=== PATIENT | female | born 1935 | race Caucasian/White ===

== ENCOUNTER 2017-10-13 14:40 | Inpatient (IN) | payer OTHER, BC ==
[~2017-10-13] VITALS: Ht 167.6 cm; Wt 60.8 kg
--- NOTE | ~2017-10-13 | HC ---
[facility] [place] [address] CONSULTATION Name: CELAYABIBI Room #: 355-P [facility] IN .R.#: [id number] Admission: 10/14/17 Attend Phys: Macho Cobb MD Discharge: Date of : 37 Report #: [id number] THIS REPORT FOR: //name// CC: Macho Cobb DATE OF SERVICE: 10/20/2017 CONSULT/PREADMISSION SCREENING HISTORY OF PRESENT ILLNESS: The patient is an 82-year-old white female with history of HIV since 1995, has had problems with worsening bilateral lower extremity weakness. She has been noted to have seen 4 different neurologists and has a diagnosis of peripheral neuropathy with progressive sensory, motor axonal neuropathy. She also has had degenerative arthritis, right hip and has undergone recent injection. She has had worsening weakness, had a fall x 2, trying to get out of a chair. She was admitted to [facility]. She underwent evaluation with bone scan and Ortho involvement and was diagnosed with a left femoral neck stress fracture with left lesser trochanteric involvement. She has now undergone intramedullary nailing on 10/18/[address] Webb and is allowed weightbearing as tolerated. We are seeing her in rehabilitation medicine consultation. PAST MEDICAL HISTORY: Well delineated above. She also has a prior history of hypertension, osteoporosis, adult onset diabetes mellitus, episode of Brown's palsy, cystocele and rectocele repair with uterine prolapse, bladder suspension surgery, tubal ligation, herniorrhaphy, and HIV. PAST SURGICAL HISTORY: As noted above. FAMILY HISTORY: Noncontributory. ALLERGIES: PROCHLORPERAZINE. MEDICATIONS: Please see the full medication listing. SOCIAL HISTORY: House with ____. She had been utilizing a wheelchair, but was independent from the wheelchair level including being able to do her transfers. is there to do the IADLs. REVIEW OF SYSTEMS: Did not offer any current complaints of chest pain, shortness of breath or abdominal discomfort. She has some left hip discomfort as expected. She has the numbness of both of her distal lower extremities with weakness consistent with peripheral neuropathy. Did not offer any complaints of any headache or swallowing difficulties. PHYSICAL EXAMINATION: [facility] [address] [place] [address] CONSULTATION Name: BIBI CELAYA Tom Room #: 355-P [facility] IN [facility].#: [id number] Admission: 10/14/17 Attend Phys: Macho Cobb MD Discharge: Date of : 37 Report #: [id number] GENERAL: An 82-year-old white female in no obvious distress. VITAL SIGNS: Last recorded temperature is 98.3, pulse 97, respirations 16, blood pressure 95/43. NEUROLOGIC: She is alert and pleasant, follows basic commands without difficulty. HEENT: Facies appeared symmetric. EXTREMITIES: She has functional range of motion of both upper extremities with strength of grade 4-/5. DTRs are trace to 1. In her lower extremities, there is no focal calf swelling. Her left hip reveals the dressing over the lateral hip and distal femoral area. There is no focal calf swelling. She does have decreased distal sensation in a stocking distribution with some decreased proprioception in bilateral large toes. Strength distally is probably a grade 3+ to 4-/5. Proximal strength is probably 3+/5. She has some discomfort moving that left lower extremity as expected. She is now mod assist with supine to sit. Unable to stand at this point in time and is needing max assist. ASSESSMENT: An 82-year-old white female with the following problems. 1. Left femoral neck stress fracture with lesser trochanteric fracture status post intramedullary nail on 10/18/2017, allowed weightbearing as tolerated. 2. Progressive sensory, motor axonal neuropathy. 3. HIV since 1995. 4. History of degenerative arthritis with recent right hip injection. 5. Premorbid wheelchair bound. 6. Acute renal insufficiency secondary to acute tubular necrosis from dehydration. 7. Hypertension. 8. Osteoporosis. PLAN: The patient is an acute inpatient rehabilitation candidate. From a preadmission screening perspective: 1. Prior level of function is delineated above. 2. Expect level of improvement would be for the patient to become modified independent with basic transfers, mobility and ADLs at the wheelchair level, so that she can return back home. 3. Evaluation of the patient's risk for clinical complications. She does have multiple medical comorbidities as noted above and has potential complications with postoperative complications. She does have the renal insufficiency issues. Her HIV and electrolyte abnormalities, all of which will need to be monitored while she is on rehabilitation. 4. Condition that caused the need for rehabilitation would be the left femoral neck fracture. 5. Treatments need would include PT and OT 1-1/2 hours per day each, five days a week throughout the duration of the acute inpatient rehabilitation stay. 6. Anticipated discharge destination would be back to the home setting. 7. Would anticipate home healthcare therapies once the patient is ready for discharge back to the home setting. [facility] [address] [place] [address] CONSULTATION Name: BIBI CELAYA Room #: 355-P [facility] IN ..#: [id number] Admission: 10/14/17 Attend Phys: Macho Cobb MD Discharge: Date of : 37 Report #: [id number] 8. The patient meets diagnostic criteria for an acute in-hospital inpatient rehabilitation stay. She does meet medical necessity criteria with the above noted comorbidities. She appears to have the tolerance for an acute rehab stay and has appropriate discharge goals back to the home setting. By: 1316 [id number] Prasanth Mehta MD /
--- NOTE | ~2017-10-13 | O ---
[facility] [place] [address] OPERATIVE REPORT Name: BIBI CELAYA Room #: 355-P [facility] IN M.R.#: [id number] Admission: 10/14/17 Attend Phys: Macho Cobb MD Discharge: Date of : 37 Report #: [id number] THIS REPORT FOR: //name// CC: Macho Cobb DATE OF SERVICE: 10/18/2017 PREOPERATIVE DIAGNOSES: Left femoral neck stress fracture and left lesser trochanteric stress fracture. POSTOPERATIVE DIAGNOSES: Left femoral neck stress fracture and left lesser trochanteric stress fracture. PROCEDURE: Prophylactic treatment of left femoral neck fracture and lesser trochanteric stress fracture with a long IM nail. SURGEON: Sharan Webb MD. AUDIT SPEC: Maria Luisa Price PA-C. INDICATIONS FOR AUDIT SPEC: Throughout the case, retraction and manipulation of the leg was required. This was afforded to me by my community assistant. ANESTHESIA: General endotracheal. IMPLANTS: [employer] size 10 x 38 InterTan nail with a size 90/85 lag screw and compression screw as well as a size 32.5 and 35 distal locking screws. ESTIMATED BLOOD LOSS: 50 mL. COMPLICATIONS: None. SPECIMENS: None. CONDITION UPON LEAVING THE OPERATING ROOM: Stable. INDICATION OF PROCEDURE: The patient is an 82-year-old female who has had significant left hip pain and debility for the past several weeks. She has had several recent falls. She was admitted to the hospital secondary to intractable left hip and thigh pain. MRI scan was performed showing to have a stress fracture at her compression side of her femoral neck as well as a stress fracture along the lesser trochanteric region. Bone scan was performed of this area and it did light up. It was felt that these were active stress fractures and after discussion with she and her family in regard to treatment options and considering the amount of pain she was in, she elected for treatment with prophylactic nailing of her left femur. [facility] [address] [place] [address] OPERATIVE REPORT Name: BIBI CELAYA Room #: 355-P [facility] IN ..#: [id number] Admission: 10/14/17 Attend Phys: Macho Cobb MD Discharge: Date of : 37 Report #: [id number] DESCRIPTION OF PROCEDURE: Risks, benefits, alternatives, complications were discussed in detail with the patient including but not limited to risk of anesthesia, risk of damage to nerves, arteries, blood vessels, risk for infection, bleeding, risk for continued hip pain and need for reoperation. Informed consent was obtained from the patient. The left hip was appropriately marked in the preoperative holding area. She was brought to the operating room and general endotracheal anesthesia was induced without complication. She was transferred to the Stella table and the left lower extremity was placed in slight traction. Right lower extremity was scissored. IV Ancef was given for preoperative antibiotics. Fluoroscopic imaging was brought in to verify the adequate images could be obtained. Left hip and lower extremity were prepped and draped in normal sterile fashion. Timeout was performed properly identifying the patient and procedure as well as the instrumentation. All in the operating room were in agreement. An incision proximal to the tip of the greater trochanter in line with femur was made with 10 blade through the skin and the fascia. Threaded tip guidewire was placed on the tip of the greater trochanter and taken down to the level of the lesser trochanter under AP and lateral images to verify adequate starting portal position. An entry portal reamer was used to ream the entry portal and a long guidewire was placed down to the femur. Length of the nail was measured and found to be a size 38 length. The femoral canal was reamed with an 11.5 reamer and found to have a good chatter. A size 10 x 38 InterTan nail was then placed down the medullary canal of the femur and seated. The guide for the lag screw and compression screw was then placed and an incision was made in the skin and fascia and threaded tip guidewire was taken up into the femoral head under AP and lateral images to be deemed in good center-center position. The length of the lag screw was measured and found to be a size 90. The tract for the compression screw was then drilled and an 85 and the derotation bar was placed. The path for the compression screw was then drilled to a 90 and a size 90 lag screw was placed. The compression screw was then placed; however, no compression was placed across the fracture secondary to there being no displacement of the fracture. This was locked from above. The guide for the nail was then removed and final fluoroscopic images both AP and lateral of the hip were taken to verify adequate placement of the nail and screw. Two distal locking screws were then placed using the perfect cold springs technique. These were 32.5 and 35 mm in length. After placing distal locking screws, fluoroscopic images both AP and lateral, taken to verify adequate placement of screws in length. After this, all wounds were thoroughly irrigated with normal saline and closed with 2-0 Vicryl and skin derek. Soft dressing of Adaptic, 4 x 4, ABD and Medipore tape were applied. The patient tolerated this procedure well and went to the recovery room under the care of anesthesia postoperatively. By: 1858 26 Sharan Webb MD /nt
--- NOTE | ~2017-10-13 | H ---
[facility] [place] [address] HISTORY AND PHYSICAL Name: BIBI CELAYA Room #: 355-P [facility].Henri#: [id number] Admission: 10/13/17 Attend Phys: Macho Cobb MD Discharge: Date of : 37 Report #: [id number] THIS REPORT FOR: //name// CC: Macho Cobb DATE OF SERVICE: 10/13/2017 REASON FOR ADMISSION: Progressive weakness and fall. HISTORY OF PRESENT ILLNESS: The patient was an 82-year-old with underlying history of HIV since 1995 diagnosis, who has been under good control since that date with a combination antiretroviral program. Over the last year, she has developed progressive lower extremity weakness due to peripheral neuropathy. She has been evaluated by 4 neurologists over this time period with no other diagnosis established. In addition, she has degenerative arthritis both of her spine and of her joints including both hips. She was hospitalized in August at [facility] for failure to thrive. Again, evaluated by Neurology and orthopedic surgery. No new diagnosis was established. She did have a steroid injection to her right hip, which improved her symptoms on the right side significantly. She later went to retirement and rehabilitation over the last month. She made slight progress and did make at home. I saw her last week in the office where she was very weak, difficult to get out of a chair but could stand with some discomfort. Laboratory studies were unremarkable. Her HIV control was good and CD4 count was normal. Today, she fell twice at home. was unable to get her out of the floor, brought in to the Emergency Room via 911. No fever, chills or sweats. No injury to her upper extremities, back or head. She did have a fall down to her knees basically. Most of her complaints now reside in pain in her left side hip and thigh. I had referred her to Orthopedic Surgery for steroid injection earlier this week, but they were unable to do it because the patient could not get out of her wheelchair. No other new issues. Appetite has been fair. Weight has been stable. No cardiopulmonary, GI or complaints. Previous workup of her cervical spine, thoracic spine and lumbosacral did note some moderate stenosis at C5 through C7 and predominant L4-L5 disk disease with [id number] foraminal narrowing. ALLERGIES: PROCHLORPERAZINE with convulsions and CODEINE, nausea. MEDICATIONS: Included Atripla, Brii, metformin, losartan, hydrochlorothiazide, amlodipine, potassium and Sinemet has been discontinued as well as B12 shots. PAST MEDICAL HISTORY: Hypertension, osteoporosis, adult-onset diabetes, episode of Brown's palsy, cystocele and rectocele repair with uterine prolapse, bladder suspension surgery, tubal ligation, herniorrhaphy and HIV. [facility] [address] [place] [address] HISTORY AND PHYSICAL Name: BIBI CELAYA Room #: 355-P [facility] Sasha Driver#: [id number] Admission: 10/13/17 Attend Phys: Macho Cobb MD Discharge: Date of : 37 Report #: [id number] FAMILY HISTORY: Noncontributory. SOCIAL HISTORY: Nonsmoker. No significant alcohol intake. Lives with her at home, has a very attentive family. REVIEW OF SYSTEMS: Noted above. PHYSICAL EXAMINATION: VITAL SIGNS: Afebrile and hemodynamically stable. GENERAL: She is alert, cooperative and pleasant. Has a hoarse voice, which is unchanged from before. SKIN: Unremarkable other than multiple actinic and seborrheic keratoses. HEENT: Otherwise, unremarkable. NECK: Supple. LUNGS: Clear. HEART: Regular, without murmur. ABDOMEN: Soft and nontender. No hepatosplenomegaly or mass. EXTREMITIES: Unremarkable. She has marked tenderness in the left hip region with much irritability. Was unable to flex her hip or rotate internal or external. Right side had some irritability but was much improved from before. Strength in her feet was unremarkable. LABORATORY STUDIES: Sodium 135, potassium 3.2, chloride 102, bicarbonate 25, BUN 30, creatinine 2.2, glucose 138 and creatinine is up from her baseline of 1.0. Hemoglobin 11.5; WBC 9.2 and platelet count 245,000. Differential unremarkable. IMPRESSION: 1. An 82-year-old with progressive sensory, motor axonal neuropathy along with advanced degenerative arthritis. Suspecting most of her symptoms now are related to her arthritis. She does have some weakness, but it seems like most of her issue is pain and muscle spasms. I suspect this may be related to irritability in the hip joint. She also has human immunodeficiency virus, which is controlled. 2. Hypokalemia. 3. Hypertension. 4. Diabetes. RECOMMENDATIONS: We will have orthopedic evaluation for steroid injection to her left hip. We will do x-rays of her hip and pelvis after her fall. Further imaging pending orthopedic recommendations. Continue with pain medicines as [facility] [address] [place] [address] HISTORY AND PHYSICAL Name: BIBI CELAYA Room #: 355-P [facility] Sasha AntoineHenriОльгаHenri#: [id number] Admission: 10/13/17 Attend Phys: Macho Cobb MD Discharge: Date of : 37 Report #: [id number] necessary. Continue HIV treatment. Replace potassium. Control blood glucose, hydrate for I suspect her acute renal failure is ATN from prerenal state. <ELECTRONICALLY SIGNED> By: Macho Cobb MD 10/14/17 1044 26 Macho Cobb MD /nt
[~2017-10-13 14:40] MED LIST: ADVIL100 M2 PO; AMLODIPINE BESY10 MG PO; ARTIFICIAL TEAR15 M1 OP; ATRIPLA TABLET1 EACH PO; COZAAR 50 MG TA50 M2 PO; DIOVAN40 MG PO; FOSAMAX 70 MG T70 MG PO; GLUCOPHAGE XR500 MG PO; HYDROCHLOROTH12.5 MG PO; HYDROCODONE-AP1 EAC6 PO; K-DUR10 ME1 PO; KLOR-CON 1010 MEQ PO; OMEGA 3-6-9 CO1 EACH PO; SINEMET 25-1001 EAC1 PO; TRIPLA PO
[2017-10-13 14:41] VITALS: BP 139/91
[2017-10-13] MEDS ORDERED: NEURONTIN 300300 M1 PO (15:00)
[2017-10-13] MEDS ORDERED: ATRIPLA TABLET1 EACH PO (15:08)
[2017-10-13] MEDS ORDERED: ALLEGRA ALLERG180 MG PO (15:09)
[2017-10-13] MEDS ORDERED: B-122500 MC1 PO (15:10)
[2017-10-13] MEDS ORDERED: PROTONIX40 M1 PO (15:11)
[2017-10-13] MEDS ORDERED: TIZANIDINE HCL4 M1 PO (15:12)
[2017-10-13] MEDS ORDERED: ZOFRAN ODT4 MG PO (15:12)
[2017-10-13] MEDS ORDERED: BUSPIRONE HCL10 MG PO (15:13)
[2017-10-13] MEDS ORDERED: TYLENOL325 MG PO (15:14)
[2017-10-13 16:45] LABS: URINE BILIRUBIN NEGATIVE (Negative); URINE BLOOD 2+ (Negative); URINE COLOR YELLOW; URINE GLUCOSE-RANDOM* NEGATIVE (Negative); URINE KETONES NEGATIVE (Negative); URINE LEUKOCYTES-REFLEX NEGATIVE (Negative); URINE PROTEIN (DIPSTICK) TRACE (Negative); URINE SPECIFIC GRAVITY <= 1.005 (1.005-1.035); URINE UROBILINOGEN 0.2 E.U./dl (0.2-1.0)
[2017-10-13 16:56] LABS: CASTS None Seen /LPF (None Seen); CRYSTALS None Seen /LPF (None Seen); SQUAMOUS 0-3 Few /LPF (0-3); URINE RBC 0-2 Rare /HPF (0-2); URINE WBC-REFLEX 0-5 Rare /HPF (0-5)
[2017-10-13 17:36] LABS: ABSOLUTE NEUTROPHILS 7.2 thou/uL (1.4-8.2); BASOPHILS 0.5 % (0.0-2.0); EOSINOPHILS 1.1 % (0.0-3.0); HEMATOCRIT 34.5 % (37.0-47.0); HEMOGLOBIN 11.5 gm/dL (12.0-15.0); LYMPHOCYTES 14.3 % (24.0-44.0); MCH 31.6 pg (26.0-34.0); MCHC 33.3 g/dL (28.0-37.0); MCV 94.8 fL (80.0-100.0); MONOCYTES 5.4 % (1.0-8.0); PLATELET COUNT 245 thou/uL (150-400); POLYS 78.7 % (36.0-66.0); RBC 3.64 mil/uL (4.20-5.00); RDW 15.8 % (10.5-14.5); WBC 9.2 thou/uL (4.0-11.0)
[2017-10-13 17:37] LABS: MANUAL DIFF NO
[2017-10-13 17:50] LABS: CALCIUM 8.7 mg/dL (8.5-10.1); CREATININE 2.2 mg/dL (0.6-1.0); POTASSIUM 3.2 mmol/L (3.5-5.1)
[2017-10-13 17:58] VITALS: BP 134/62
[2017-10-13 18:24] VITALS: BP 149/65
[2017-10-13 20:00] VITALS: BP 127/56
[2017-10-14 04:00] VITALS: BP 106/60
[2017-10-14 04:28] LABS: CALCIUM 7.9 mg/dL (8.5-10.1); CREATININE 2.1 mg/dL (0.6-1.0); POTASSIUM 3.3 mmol/L (3.5-5.1)
[2017-10-14 07:10] VITALS: BP 102/44
[2017-10-14 12:17] VITALS: BP 135/66
[2017-10-14 15:21] VITALS: BP 152/49
[2017-10-14 20:00] VITALS: BP 129/75
[2017-10-15 04:00] VITALS: BP 147/72
[2017-10-15 06:35] LABS: CALCIUM 8.8 mg/dL (8.5-10.1); CREATININE 1.7 mg/dL (0.6-1.0); POTASSIUM 3.4 mmol/L (3.5-5.1)
[2017-10-15 07:29] VITALS: BP 161/71
[2017-10-15 17:06] VITALS: BP 146/77
[2017-10-15 20:20] VITALS: BP 143/69
[2017-10-16 05:00] VITALS: BP 167/86
[2017-10-16 07:30] VITALS: BP 149/82
[2017-10-16 15:33] VITALS: BP 137/66
[2017-10-16 21:01] VITALS: BP 148/77
[2017-10-16 21:13] VITALS: BP 148/77
[2017-10-17 04:00] VITALS: BP 141/74
[2017-10-17 04:43] LABS: CALCIUM 8.3 mg/dL (8.5-10.1); CREATININE 1.4 mg/dL (0.6-1.0)
[2017-10-17 08:00] VITALS: BP 138/82
[2017-10-17 16:00] VITALS: BP 142/74
[2017-10-17 20:00] VITALS: BP 120/81
[2017-10-18 04:00] VITALS: BP 143/83
[2017-10-18 07:12] VITALS: BP 114/77
[2017-10-18 11:31] LABS: CALCIUM 8.8 mg/dL (8.5-10.1); CREATININE 1.5 mg/dL (0.6-1.0); POTASSIUM 3.9 mmol/L (3.5-5.1)
[2017-10-18 19:27] LABS: HEMATOCRIT 34.6 % (37.0-47.0); HEMOGLOBIN 11.5 gm/dL (12.0-15.0); MCH 31.9 pg (26.0-34.0); MCHC 33.2 g/dL (28.0-37.0); MCV 96.2 fL (80.0-100.0); RBC 3.59 mil/uL (4.20-5.00); RDW 16.2 % (10.5-14.5); WBC 6.7 thou/uL (4.0-11.0)
[2017-10-18 21:34] VITALS: BP 112/59
[2017-10-19] VITALS (7 sets, daily range): BP systolic 101–111; BP diastolic 61–68
[2017-10-19 06:40] LABS: HEMATOCRIT 27.9 % (37.0-47.0); MCH 31.6 pg (26.0-34.0); MCHC 33.4 g/dL (28.0-37.0); MCV 94.5 fL (80.0-100.0); RBC 2.95 mil/uL (4.20-5.00); RDW 15.7 % (10.5-14.5); WBC 12.2 thou/uL (4.0-11.0)
[2017-10-19 06:54] LABS: HEMOGLOBIN 9.3 gm/dL (12.0-15.0)
[2017-10-20 05:05] VITALS: BP 106/63
[2017-10-20 06:45] LABS: HEMATOCRIT 22.7 % (37.0-47.0); HEMOGLOBIN 7.8 gm/dL (12.0-15.0); MCH 32.6 pg (26.0-34.0); MCHC 34.2 g/dL (28.0-37.0); MCV 95.3 fL (80.0-100.0); RBC 2.38 mil/uL (4.20-5.00); RDW 15.7 % (10.5-14.5); WBC 7.7 thou/uL (4.0-11.0)
[2017-10-20 07:01] LABS: CALCIUM 8.5 mg/dL (8.5-10.1); CREATININE 1.6 mg/dL (0.6-1.0); POTASSIUM 4.1 mmol/L (3.5-5.1)
[2017-10-20 07:41] VITALS: BP 95/43
[2017-10-20 10:43] VITALS: BP 95/43
[2017-10-20 16:00] VITALS: BP 114/47
[2017-10-20 16:15] VITALS: BP 114/47
[2017-10-20 19:05] VITALS: BP 114/65
[2017-10-21 03:55] VITALS: BP 126/66
[2017-10-21 07:11] VITALS: BP 124/65
[2017-10-21 08:30] VITALS: BP 124/65
== END 2017-10-21 11:46 | DRG 480 ==
LOC: ER 14:40 → EROBS 17:01 → 3W 18:05
PROVIDERS: Emergency Medicine; Orthopaedic Surgery; Specialist
PROC: 0QH706Z Insertion of Intramedullary Internal Fixation Device into Left Upper Femur, Open Approach (ICD-10-PCS; principal; 2017-10-18)
DX: M84.352A Stress fracture, left femur, initial encounter for fracture (principal); N17.0 Acute kidney failure with tubular necrosis; I10 Essential (primary) hypertension; M81.0 Age-related osteoporosis without current pathological fracture; M19.90 Unspecified osteoarthritis, unspecified site; E87.6 Hypokalemia; E11.42 Type 2 diabetes mellitus with diabetic polyneuropathy; R62.7 Adult failure to thrive; E86.0 Dehydration; W18.39XA Other fall on same level, initial encounter; Y93.89 Activity, other specified; Z90.710 Acquired absence of both cervix and uterus; Z79.899 Other long term (current) drug therapy; Z88.5 Allergy status to narcotic agent; Z99.3 Dependence on wheelchair; Z88.8 Allergy status to other drugs, medicaments and biological substances; Y92.89 Other specified places as the place of occurrence of the external cause; Y99.8 Other external cause status
CPT/HCPCS: 10879; 50010; 50101; 50386; 51412; 51538; 52304; 55445; 56524; 57092; 62110; 62900; 70005

== ENCOUNTER 2017-10-21 08:01 | Inpatient (IN) | payer OTHER, BC ==
[~2017-10-21] VITALS: Ht 165.1 cm; Wt 57.6 kg
--- NOTE | ~2017-10-21 | HC ---
[facility] [place] [address] CONSULTATION Name: YOMIBIBI Tom Room #: 511-P [facility] IN .R.#: [id number] Admission: 10/21/17 Attend Phys: Prasanth Mehta MD Discharge: Date of : 37 Report #: [id number] THIS REPORT FOR: //name// CC: Macho Mehta DATE OF SERVICE: 10/23/2017 NEUROBEHAVIORAL STATUS EXAM ATTENDING PHYSICIAN: Prasanth Mehta MD CHIEF COMPLIANCE OFFICER: Marco Mendez PhD CLINICAL PRESENTATION: The patient is an 82-year-old female admitted to the rehabilitation unit at [facility] for a comprehensive inpatient rehabilitation program to improve functional mobility, activities of daily living and self-care and mental status secondary to deficits from a left femoral neck stress fracture. She also was diagnosed with a trochanteric fracture and is status post intramedullary nailing. Her assessment also includes a progressive sensory, motor axonal neuropathy, human immunodeficiency virus since 1995, history of degenerative arthritis with the recent right hip injection, premorbid wheelchair bound, acute renal insufficiency secondary to tubular necrosis from dehydration, hypertension and osteoporosis. A complete description of her medical condition and history can be found in her medical record. Neuropsychological consultation was requested to provide assistance in the assessment of cognitive and emotional status and to provide recommendations and services. Prior to this most recent admission, she was living with her in their home. She is a high school graduate. She has 5 children. She was primarily a homemaker throughout her life. There is no report of prior treatment for anxiety or depression, alcohol or substance abuse. She had been wheelchair dependent and reportedly her has been assisting with the management of nutrition. Her indicates that her cognitive ability was within normal limits before her hospitalization and his opinion is that she has returned to normal at this time to its baseline level which does not report to have been impaired. TECHNIQUES UTILIZED: Clinical interview, review of medical records, staff consultation and behavioral observation, family interview -- , mini mental status exam 2 standard version, clock drawing and subtest of a calibrated ideational fluency assessment -- category fluency. EXAMINATION FINDINGS: The patient was alert and cooperative with the assessment. She accurately described the reason for her hospitalization. She [facility] [address] [place] [address] CONSULTATION Name: BIBI CELAYA Tom Room #: 511-P [facility] IN .R.#: [id number] Admission: 10/21/17 Attend Phys: Prasanth Mehta MD Discharge: Date of : 37 Report #: [id number] does not report auditory or visual hallucinations. There is no suicidal ideation. Her thoughts are logical and goal oriented. There is no evidence of aphasia. Thought content is appropriate. Her performance on the MMSE-2 brief version was extremely low with a raw score of 12 and a T score of 30. The patient was 3/3 for initial registration, 5/5 for orientation to time and 4/[address]. She was 0/3 for immediate recall of 3 items with a brief distraction and delay. Her performance was within normal limits when given recognition option on immediate recall. Her performance on the MMSE-2 standard version improved to a raw score 24/30, which is a T score of 40 and percentile rank of 16. She was 3/5 for serial sevens, 2/2 for naming, 1/1 for repetition. She could follow a 3-step command. She was able to read and follow a single command. The patient could write a sentence and copy a simple geometric design. Her performance was incorrect on clock drawing. Deficits were noted in her ability to place the hands at a designated time. Dysfunction in attention/concentration and higher level executive function is suggested. The patient is presenting with deficits in immediate memory, sustained concentration and attention and executive functioning. This type of presentation can suggest neurodegenerative disorder. However, she is recently recovering from surgery for a hip fracture. Neurocognitive function may be impacted by recent medical events and medications. 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 Adjustment disorder with anxious mood. RECOMMENDATIONS: Continued cognitive rehabilitation with a focus on immediate memory and sustained concentration and attention. The patient is likely to require rest breaks during therapies. A followup neuropsychological evaluation is indicated to clarify the severity of cognitive deficits. At this time, she will require assistance in the management of medication, nutrition and decision making. Providing her with written information during her therapy program may be of benefit in regard to patient education. Frequent repetition will also be necessary. Thank you very much for allowing me to provide the consultation on this patient. <ELECTRONICALLY SIGNED> By: Marco Estrada, PhD 10/27/17 [id number] [id number] Marco Estrada, PhD /nt
--- NOTE | ~2017-10-21 | PLAN ---
[facility] [place] [address] REHAB UNIT PLAN OF CARE Name: YOMIBIBI Tom Room #: 511-P ADM IN M.R.#: [id number] Admission: 10/21/17 Attend Phys: Prasanth Mehta MD Discharge: Date of : 37 Report #: [id number] THIS REPORT FOR: //name// CC: Macho Mehta DATE OF SERVICE: 10/23/2017 The patient was seen back in followup. She was in no distress. She was seen earlier. Temperature was 36.6, pulse 90, respirations 18, blood pressure 122/68. She was sleeping and would easily arouse. Dressing left leg, dry and intact. She has been involved in therapies with transfers, max assist. Gait mod assist for steps in the parallel bars. In occupational therapy, lower body dressing is dependent. In speech therapy, she is being evaluated regarding medication issues. ASSESSMENT: 1. Left femoral neck stress fracture with lesser trochanteric fracture status post intramedullary nail on 10/18/2017, allowed weightbearing as tolerated. 2. Progressive sensory, motor, axonal neuropathy. 3. HIV since 1995. 4. History of degenerative arthritis with recent right hip injection. 5. Premorbid wheelchair bound. 6. Acute renal insufficiency secondary to acute tubular necrosis from dehydration. 7. Hypertension. 8. Osteoporosis. PLAN: The overall plan of care is based on the preadmission screen, post-admission physician evaluation and information garnered from therapy assessments. 1. Estimated length of stay will probably be pretty long, as she is at a lower functional level. Would anticipate in 2-3 weeks. 2. Medical prognosis is reasonably good. 3. Anticipated interventions includes the interdisciplinary acute inpatient rehabilitation program with PT, OT and speech, rehabilitation nursing assisting regarding medication management, skin care prophylaxis, bowel and bladder issues and nursing education. The other senior research consultant physicians continue to follow. 4. Anticipated functional outcomes would be for her to become ideally modified independent as she was able to the OR from the wheelchair level including being able to do her own transfers. 5. Discharge destination would be back home with her . 6. Expected therapy by discipline includes PT, OT and speech 1 hour per day [address] [address] REHAB UNIT PLAN OF CARE Name: CELAYABIBI Room #: 511-P [facility] IN [facility]#: [id number] Admission: 10/21/17 Attend Phys: Prasanth Mehta MD Discharge: Date of : 37 Report #: [id number] each five days a week throughout the duration of the acute inpatient patient stay. <ELECTRONICALLY SIGNED> By: Prasanth Mehta MD 10/28/17 1643 [id number] Prasanth Mehta MD /PMT
--- NOTE | ~2017-10-21 | H ---
[facility] [place] [address] HISTORY AND PHYSICAL Name: YOMIBIBI Tom Room #: 511-P ADM IN M.R.#: [id number] Admission: 10/21/17 Attend Phys: Prasanth Mehta MD Discharge: Date of : 37 Report #: [id number] THIS REPORT FOR: //name// CC: Macho Mehta DATE OF SERVICE: 10/21/2017 HISTORY OF PRESENT ILLNESS: The patient is an 82-year-old white female with history of HIV since 1995. She has had problems with worsening bilateral lower extremity weakness. 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 She also has degenerative arthritis, right hip and has undergone recent injection. She has had the worsening weakness. She had a fall x 2, trying to get out of a chair. She was admitted to [facility]. She underwent evaluation with a bone scan and orthopedic involvement and she was diagnosed with a left femoral neck stress fracture with left lesser trochanteric involvement. She has now undergone intramedullary nailing on 10/18/[address] Webb and is allowed weightbearing as tolerated. She has multiple medical comorbidities as noted above. She has now been admitted for acute in-hospital inpatient rehabilitation. PAST MEDICAL HISTORY: Delineated above. She has the prior history of hypertension, osteoporosis, adult onset diabetes mellitus, episode of Brown's palsy, cystocele and rectocele repair with uterine prolapse, bladder suspension surgery, tubal ligation, herniorrhaphy, and HIV. PAST SURGICAL HISTORY: As noted above. FAMILY HISTORY: Noncontributory. ALLERGIES: PROCHLORPERAZINE. MEDICATIONS: Please see the full medication listing. This list includes the patient's vitamins, herbals, and supplements. SOCIAL HISTORY: She lives in a house with her . She has been utilizing a wheelchair, but was independent from a wheelchair level including being able to do her own transfers. was able to do the IADLs. REVIEW OF SYSTEMS: No current complaints of chest pain, shortness of breath, or abdominal discomfort. There is some left hip discomfort as expected. She again has the numbness that is noted of both distal lower extremities. No other focal complaints. PHYSICAL EXAMINATION: [address] [address] HISTORY AND PHYSICAL Name: BIBI CELAYA Room #: 511-P [facility] IN ..#: [id number] Admission: 10/21/17 Attend Phys: Prasanth Mehta MD Discharge: Date of : 37 Report #: [id number] GENERAL: Pleasant 82-year-old female in no obvious distress. VITAL SIGNS: Last recorded temperature 98.4, pulse 103, respirations 18, blood pressure 110/65. The patient is alert. HEENT: Appeared to be benign. Cranial nerves grossly intact. Facies are symmetric. CHEST: Sounded clear to auscultation. CARDIOVASCULAR: Regular rate and rhythm. ABDOMEN: Bowel sounds positive, nontender. GENITOURINARY AND RECTAL: Deferred. EXTREMITIES: Left hip reveals the dressing over the lateral hip and distal femoral area. Dressing appears dry. There is no focal calf swelling. She has decreased distal sensation in a stocking distribution as before. Strength distally is probably a grade 3+ to 4-/5 proximally it is 3+/5. Right lower extremity strength is probably a grade 4- to 3+/5. Both upper extremities strength is probably a grade 4-/5. She is needing assistance with basic functional mobility skills with transfers, max assist of 1-2. Standing is max assist of 2. ASSESSMENT: An 82-year-old white female with the following problem list: 1. Left femoral neck stress fracture with lesser trochanteric fracture status post intramedullary nail. 10/18/2017, allowed weightbearing as tolerated. 2. Progressive sensory, motor axonal neuropathy. 3. Human immunodeficiency virus since 1995. 4. History of degenerative arthritis with recent right hip injection. 5. Premorbid wheelchair bound. 6. Acute renal insufficiency secondary to acute tubular necrosis from dehydration. 7. Hypertension. 8. Osteoporosis. PLAN: The patient is admitted for acute in-hospital inpatient rehabilitation. From a post-admission physician evaluation perspective, there are no relevant changes since the preadmission screening. Please see the above review of prior and current medical and functional conditions and comorbidities. Please see the patient's previous and current functional status. As far as risk of complication, she does have multiple medical comorbidities as noted above. Initial plan of care involves the interdisciplinary acute inpatient rehabilitation program with goal of maximizing the patient's functional independence, so that she can hopefully return back to her prior living situation. Measurable functional goals would be for her to become modified independent with transfers, mobility and ADLs. The goal is to be independent at a wheelchair level. Prognosis is reasonably good. Would anticipate length of stay of probably 2 weeks and likely longer as warranted. Potential barriers would include her multiple medical comorbidities and her decreased functional status. [facility] [address] [place] [address] HISTORY AND PHYSICAL Name: BIBI CELAYA Room #: 511-P ADM IN M.R.#: [id number] Admission: 10/21/17 Attend Phys: Prasanth Mehta MD Discharge: Date of : 37 Report #: [id number] The patient meets diagnostic criteria for an acute in-hospital inpatient rehabilitation stay. She meets medical necessity criteria and we will have the small business consultant physicians continue to follow. She does have the tolerance for therapies and has appropriate discharge goals back to the home setting. <ELECTRONICALLY SIGNED> By: Prasanth Mehta MD 10/28/17 1643 0856 1037 Prasanth Mehta MD /[facility]
[~2017-10-21 08:01] MED LIST changes: +ALLEGRA ALLERG180 MG PO; +B-122500 MC1 PO; +BUSPIRONE HCL10 MG PO; +NEURONTIN 300300 M1 PO; +PROTONIX40 M1 PO; +TIZANIDINE HCL4 M1 PO; +TYLENOL325 MG PO; +ZOFRAN ODT4 MG PO
[2017-10-21 12:00] VITALS: BP 128/67
[2017-10-21 19:28] VITALS: BP 110/65
[2017-10-22 06:17] LABS: WBC 6.9 thou/uL (4.0-11.0)
[2017-10-22 06:18] LABS: HEMOGLOBIN 6.5 gm/dL (12.0-15.0); MCH 33.4 pg (26.0-34.0); MCHC 35.2 g/dL (28.0-37.0); MCV 94.9 fL (80.0-100.0); RBC 1.93 mil/uL (4.20-5.00); RDW 16.2 % (10.5-14.5)
[2017-10-22 06:27] LABS: CALCIUM 8.1 mg/dL (8.5-10.1); CREATININE 1.3 mg/dL (0.6-1.0); POTASSIUM 3.2 mmol/L (3.5-5.1)
[2017-10-22 06:30] LABS: HEMATOCRIT 18.3 % (37.0-47.0)
[2017-10-22 07:45] VITALS: BP 113/72
[2017-10-22 10:26] VITALS: BP 122/79; BP 123/64
[2017-10-22 19:58] VITALS: BP 122/68
[2017-10-23 03:39] LABS: ABSOLUTE NEUTROPHILS 4.4 thou/uL (1.4-8.2); BASOPHILS 0.7 % (0.0-2.0); EOSINOPHILS 2.7 % (0.0-3.0); HEMATOCRIT 23.3 % (37.0-47.0); LYMPHOCYTES 28.3 % (24.0-44.0); MCH 31.8 pg (26.0-34.0); MCHC 34.2 g/dL (28.0-37.0); MCV 92.9 fL (80.0-100.0); MONOCYTES 8.4 % (1.0-8.0); PLATELET COUNT 240 thou/uL (150-400); POLYS 59.9 % (36.0-66.0); RBC 2.51 mil/uL (4.20-5.00); RDW 16.8 % (10.5-14.5); WBC 7.4 thou/uL (4.0-11.0)
[2017-10-23 03:54] LABS: CALCIUM 7.8 mg/dL (8.5-10.1); CREATININE 1.3 mg/dL (0.6-1.0); MAGNESIUM 1.7 mg/dL (1.8-2.4); POTASSIUM 3.7 mmol/L (3.5-5.1)
[2017-10-23 07:22] VITALS: BP 126/66
[2017-10-23 20:02] VITALS: BP 111/63
[2017-10-24 08:15] VITALS: BP 135/79
[2017-10-24 19:39] VITALS: BP 116/65
[2017-10-25 07:45] VITALS: BP 125/75
[2017-10-25 19:25] VITALS: BP 128/73
[2017-10-26 07:45] VITALS: BP 128/65
[2017-10-26 19:37] VITALS: BP 110/55
[2017-10-27 06:06] LABS: HEMATOCRIT 25.5 % (37.0-47.0); HEMOGLOBIN 8.8 gm/dL (12.0-15.0)
[2017-10-27 06:12] LABS: CALCIUM 8.3 mg/dL (8.5-10.1); CREATININE 1.3 mg/dL (0.6-1.0); POTASSIUM 3.4 mmol/L (3.5-5.1)
[2017-10-27 07:30] VITALS: BP 126/67
[2017-10-27 19:12] VITALS: BP 117/65
[2017-10-28 08:00] VITALS: BP 120/69
[2017-10-28 20:30] VITALS: BP 125/64
[2017-10-29 06:11] LABS: HEMATOCRIT 25.4 % (37.0-47.0); HEMOGLOBIN 8.7 gm/dL (12.0-15.0)
[2017-10-29 06:13] LABS: HEMATOCRIT 25.4 % (37.0-47.0); HEMOGLOBIN 8.6 gm/dL (12.0-15.0); MCH 32.4 pg (26.0-34.0); MCHC 34.1 g/dL (28.0-37.0); RBC 2.67 mil/uL (4.20-5.00); RDW 18.3 % (10.5-14.5)
[2017-10-29 06:28] LABS: CALCIUM 8.2 mg/dL (8.5-10.1); CREATININE 1.3 mg/dL (0.6-1.0); POTASSIUM 3.5 mmol/L (3.5-5.1)
[2017-10-29 08:47] VITALS: BP 107/60
[2017-10-29 20:26] VITALS: BP 106/53
[2017-10-30 07:30] VITALS: BP 122/69
[2017-10-30 20:05] VITALS: BP 127/58
[2017-10-31 09:55] VITALS: BP 121/56
[2017-10-31 20:30] VITALS: BP 115/55
[2017-11-01 08:19] VITALS: BP 137/65
[2017-11-01 19:53] VITALS: BP 104/57
[2017-11-02 03:30] LABS: CALCIUM 8.4 mg/dL (8.5-10.1); CREATININE 1.2 mg/dL (0.6-1.0)
[2017-11-02 07:30] VITALS: BP 134/58
[2017-11-02 09:58] LABS: HEMATOCRIT 26.1 % (37.0-47.0); HEMOGLOBIN 8.9 gm/dL (12.0-15.0)
[2017-11-02 20:14] VITALS: BP 121/69
[2017-11-03 07:30] VITALS: BP 129/63
[2017-11-03 19:59] VITALS: BP 117/62
[2017-11-04 07:42] VITALS: BP 119/72
[2017-11-04 19:50] VITALS: BP 114/74
[2017-11-05 08:00] VITALS: BP 123/66
[2017-11-05] MEDS ORDERED: ACETAMINOPHEN325 M1 PO (10:24)
[2017-11-05] MEDS ORDERED: SENNA8.6 MG PO (10:25)
[2017-11-05 12:24] VITALS: BP 123/66
== END 2017-11-05 14:30 | disposition home health service (06) | DRG 542 ==
PROVIDERS: Hospitalist; Internal Medicine; Nurse Practitioner; Physical Medicine & Rehabilitation; Specialist
PROC: 30233N1 Transfusion of Nonautologous Red Blood Cells into Peripheral Vein, Percutaneous Approach (ICD-10-PCS; principal; 2017-10-22)
DX: M84.359A Stress fracture, hip, unspecified, initial encounter for fracture (principal); N17.0 Acute kidney failure with tubular necrosis; I10 Essential (primary) hypertension; M81.0 Age-related osteoporosis without current pathological fracture; R41.9 Unspecified symptoms and signs involving cognitive functions and awareness; F43.22 Adjustment disorder with anxiety; M19.90 Unspecified osteoarthritis, unspecified site; W18.39XA Other fall on same level, initial encounter; E86.0 Dehydration; E87.6 Hypokalemia; R53.81 Other malaise; E11.42 Type 2 diabetes mellitus with diabetic polyneuropathy; D64.9 Anemia, unspecified; E55.9 Vitamin D deficiency, unspecified; Z88.8 Allergy status to other drugs, medicaments and biological substances; Y93.89 Activity, other specified; Y92.89 Other specified places as the place of occurrence of the external cause; Y99.8 Other external cause status; Z88.5 Allergy status to narcotic agent
CPT/HCPCS: 10112

== ENCOUNTER 2017-11-23 14:20 | Inpatient (IN) | payer OTHER, BC ==
[~2017-11-23] VITALS: Ht 167.6 cm; Wt 58.2 kg
--- NOTE | ~2017-11-23 | H ---
[facility] [place] [address] HISTORY AND PHYSICAL Name: YOMIBIBI Tom Room #: 442-P ADM IN M.R.#: [id number] Admission: 11/23/17 Attend Phys: Macho Cobb MD Discharge: Date of : 37 Report #: [id number] THIS REPORT FOR: //name// CC: Macho Cobb DATE OF SERVICE: 11/23/2017 REASON FOR ADMISSION: Failure to thrive, underlying HIV and chronic pain. HISTORY OF PRESENT ILLNESS: The patient is an 82-year-old with longstanding HIV who has been well controlled on Atripla. She has been having issues with increased pain mostly in her hips and lower extremities. She was found to have insufficiency fractures of both femoral necks, left greater than right. Actually had a long IM nail placed on 10/18/2017. Postoperatively, did reasonably well. She went to acute rehabilitation and was ultimately discharged home. Last week, she fell when getting out of bed with her in attendance. He could not get her back into bed and had to call 911 for emergency services to assist. She was placed back in bed and she has been in bed for the last 8 days. We called the patient's today to check on her, for she was supposed to have come into the office for further evaluation. He stated that she has been in bed and would not get up due to her pain. She was brought in through the Emergency Room by EMS. She has reasonable pain control now through the Emergency Room. REVIEW OF SYSTEMS: Notes no cardiopulmonary, GI or complaints. Appetite has been fair, although her has to prod her a bit to get her to eat significantly. ALLERGIES: PROCHLORPERAZINE AND CODEINE. MEDICATIONS: Included Tylenol, senna, potassium 10 mEq, Neurontin 300 mg t.i.d., Atripla 1 every day, pantoprazole 40 mg b.i.d., ondansetron 4 mg p.r.n. nausea, buspirone 5 mg p.o. b.i.d. PAST MEDICAL HISTORY, FAMILY HISTORY, SOCIAL HISTORY: Unchanged from my previous H and P, most notable with history of peripheral neuropathy leading to her generalized lower extremity weakness, HIV, hypertension and currently poor nutrition. PHYSICAL EXAMINATION: VITAL SIGNS: Afebrile and hemodynamically stable. GENERAL: She is alert and cooperative. Generalized weakness. HEENT: Unremarkable. She had a hoarse voice, which is unchanged from her previous. NECK: Supple. No adenopathy. SKIN: Unremarkable with no decubiti. [address] [address] HISTORY AND PHYSICAL Name: BIBI CELAYA Room #: 442-P [facility] IN M.R.#: [id number] Admission: 11/23/17 Attend Phys: Macho Cobb MD Discharge: Date of : 37 Report #: [id number] LUNGS: Clear. HEART: Regular, without murmur. ABDOMEN: Soft and nontender. No hepatosplenomegaly or mass. GENITORECTAL: Not performed. EXTREMITIES: Unremarkable. Left hip and thigh incision unremarkable. She had significant amount of pain when trying to roll over in bed. She was able to sit up in bed with some assistance. Most of her pain was in her right hip and thigh. Limited range of motion on the right side. She had generalized stiffness and weakness in both lower extremities. LABORATORY DATA: Thoracic lumbosacral spine x-rays unremarkable. Left hip x-ray, postoperative change. Hemoglobin 11.9, platelet count 323,000, white count 7.8. Sodium 137, potassium 4.1, bicarbonate 22, creatinine 1.2, glucose 124. IMPRESSION: 1. An 82-year-old with progressive decline over the last year with sensorimotor axonal peripheral neuropathy, degenerative arthritis, insufficiency fractures of both hips, continued lower extremity pain mostly now on the right. 2. Human immunodeficiency virus. 3. Hypertension. 4. Diabetes, now diet controlled. 5. Failure to thrive. 6. Malnutrition. RECOMMENDATION: We will admit for stabilization, pain control, Case Management evaluation to arrange appropriate home care. We will have Orthopedic Surgery evaluate for repeat injection of her right hip. Hopefully, this would give us improvement so she will mobilize better. Otherwise, we would be looking at an IM nail on the right. The patient was not desirous to go on hospice. She still wanted treatment, although is reasonable about her potential options and expected outcome. <ELECTRONICALLY SIGNED> By: Macho Cobb MD 11/24/17 [phone] 08 Macho Cobb MD /nt
--- NOTE | ~2017-11-23 | EKG ---
[place] [address] [facility] [place] [address] ELECTROCARDIOGRAM REPORT Name: MJ CELAYAMEG Santos Room #: 442- ADM IN M.R.#: [id number] Admission: 11/23/17 Attend Phys: Macho Cobb MD Discharge: Date of : 37 Report #: [id number] THIS REPORT FOR: //name// [facility] Test Date: 2017-11-24 Test Time: 10:34:57 Pat Name: BIBI CELAYA Department: Room: 442 Gender: F Etiology Teacher: Keith NAVARRO : 1935 Requested By: Macho Cobb Order Number: [id number] MD: Carlos Gage Measurements Intervals [place] Rate: 94 P: 68 MA: 205 QRS: 5 QRSD: 118 T: 150 QT: 366 QTc: 458 Interpretive Statements Sinus rhythm Incomplete left bundle branch block Compared to ECG 02/21/2013 10:22:36 No significant change was found Electronically Signed On 11-24-2017 16:05:24 PARATRANSIT OPERATOR by Carlos Gage [email or web address] <ELECTRONICALLY SIGNED> By: Carlos Gage MD, [facility] 11/24/17 [id number] Carlos Gage MD, [facility] /EPI
--- NOTE | ~2017-11-23 | O ---
[facility] [place] [address] OPERATIVE REPORT Name: BIBI CELAYA Tom Room #: 442-P [facility] IN M.R.#: [id number] Admission: 11/23/17 Attend Phys: Macho Cobb MD Discharge: 11/30/17 Date of : 37 Report #: [id number] THIS REPORT FOR: //name// CC: Macho Cobb DATE OF SERVICE: 11/23/2017 PREOPERATIVE DIAGNOSIS: Right femoral neck stress fracture. POSTOPERATIVE DIAGNOSIS: Right femoral neck stress fracture. PROCEDURE: Treatment of right femoral neck fracture with IM nail. SURGEON: Sharan Webb MD. OUTSIDE DELIVERER: Maria Luisa Price PA-C. ANESTHESIA: General endotracheal. IMPLANTS: [employer] size 10 x 38 InterTan nail with size 85/80 lag screw and a size 32.5 and 37.5 distal locking screws. ESTIMATED BLOOD LOSS: 50 mL. COMPLICATIONS: None. SPECIMENS: None. INDICATION FOR OUTSIDE DELIVERER: Throughout the case, extensive retraction and assistance with surgery was required. This was afforded to me by my corporate administrative assistant. INDICATION FOR PROCEDURE: The patient is an 82-year-old female who has been having right hip and leg pain for several months. She had an MRI scan several weeks ago showing to have a femoral neck stress fracture of the right as well as subtrochanteric stress fracture on the left. The left side was treated with an IM nail with good result and relief of pain; and after discussion with her and her and given the amount of pain she was having in the right hip and thigh, she elected for treatment with IM nail on the right. DESCRIPTION OF PROCEDURE: Risks, benefits, alternatives and complications were discussed in detail with the patient, including but not limited to, risk of anesthesia; risk of damage to nerves, arteries or blood vessels; risk for infection or bleeding; risk for continued hip pain and leg pain and need for reoperation. Informed consent was obtained. The patient's right hip was appropriately marked in the preoperative holding area. IV Ancef was given for preoperative antibiotic. She was brought to the operating room and placed in [address] [address] OPERATIVE REPORT Name: BIBI CELAYA Room #: 442-P [facility] IN M.R.#: [id number] Admission: 11/23/17 Attend Phys: Macho Cobb MD Discharge: 11/30/17 Date of : 37 Report #: [id number] the supine position on the operating room table. General endotracheal anesthesia was induced without complication. She was transferred to the [place] table and the right lower extremity was placed in slight traction. Left lower extremity was scissored. Fluoroscopic imaging was brought in to verify that adequate images could be obtained and this was the case. Right hip and thigh were then prepped and draped in the normal sterile fashion. Timeout was performed, properly identifying the patient and procedure as well as the instrumentation. All in the operating room were in agreement. A 2-inch incision proximal to the greater trochanter was made with 10 blade through the skin and fascia. Threaded tip guidewire was placed on the tip of the greater trochanter and taken down to the level of the lesser trochanter under AP and lateral imaging. An entry portal reamer was used to ream in the entry portal and a guidewire was placed down into the femoral canal. A 10 x 38 nail was then selected and opened. The femoral canal was reamed up to 11.5. The 10 x 38 nail was then passed down into the femoral canal and seated at the appropriate level. Threaded tip guidewire was then placed up into the femoral head using the guide and this was measured and found to be a size 85. The path for the inferior screw was then reamed and then the path for the lag screw was arranged. The 85-mm lag screw was then placed up into the femoral head and a compression screw was then placed below this. This was locked from above. The obturator was removed and attention was then turned to the distal femoral locking screws. These were placed using perfect [place] technique and the proximal screw was 32.5 mm. The distal screw was 37.5 mm. After this, final fluoroscopic images were taken to verify adequate placement of the nail and the length of hardware. The wound was thoroughly irrigated with normal saline and closed with 2-0 Vicryl, skin derek, soft dressing, Adaptic, 4 x 4s, ABD and Medipore tape were applied. The patient tolerated this procedure well and went to the recovery room under the care of anesthesia postoperatively. <ELECTRONICALLY SIGNED> By: Sharan Webb MD 12/14/17 0820 1005 1040 Sharan Webb MD /nt
[~2017-11-23 14:20] MED LIST changes: +ACETAMINOPHEN325 M1 PO; +SENNA8.6 MG PO
[2017-11-23 14:21] VITALS: BP 151/74
[2017-11-23 16:05] LABS: ABSOLUTE NEUTROPHILS 5.4 thou/uL (1.4-8.2); EOSINOPHILS 0.8 % (0.0-3.0); HEMATOCRIT 35.2 % (37.0-47.0); HEMOGLOBIN 11.9 gm/dL (12.0-15.0); LYMPHOCYTES 23.1 % (24.0-44.0); MCH 32.6 pg (26.0-34.0); MCHC 33.7 g/dL (28.0-37.0); MCV 96.6 fL (80.0-100.0); MONOCYTES 6.3 % (1.0-8.0); PLATELET COUNT 323 thou/uL (150-400); POLYS 68.8 % (36.0-66.0); RBC 3.65 mil/uL (4.20-5.00); RDW 16.3 % (10.5-14.5); WBC 7.8 thou/uL (4.0-11.0)
[2017-11-23 16:13] LABS: CALCIUM 9.6 mg/dL (8.5-10.1); CREATININE 1.2 mg/dL (0.6-1.0); POTASSIUM 4.1 mmol/L (3.5-5.1)
[2017-11-23 19:23] VITALS: BP 169/79
[2017-11-23 20:00] VITALS: BP 160/88
[2017-11-24 04:09] VITALS: BP 137/41
[2017-11-24 04:15] VITALS: BP 146/78
[2017-11-24 08:22] VITALS: BP 143/78
[2017-11-24 15:58] VITALS: BP 138/76
[2017-11-24 19:14] VITALS: BP 132/61
[2017-11-25 04:16] VITALS: BP 141/74
[2017-11-25 06:55] LABS: CALCIUM 8.6 mg/dL (8.5-10.1); CREATININE 1.2 mg/dL (0.6-1.0); POTASSIUM 3.1 mmol/L (3.5-5.1)
[2017-11-25 07:48] VITALS: BP 154/86
[2017-11-25 09:56] LABS: HEMATOCRIT 35.1 % (37.0-47.0); HEMOGLOBIN 11.7 gm/dL (12.0-15.0); MCH 32.5 pg (26.0-34.0); MCHC 33.3 g/dL (28.0-37.0); MCV 97.7 fL (80.0-100.0); RBC 3.6 mil/uL (4.20-5.00); RDW 16.7 % (10.5-14.5); WBC 6.8 thou/uL (4.0-11.0)
[2017-11-25 11:58] VITALS: BP 121/67
[2017-11-25 12:00] VITALS: BP 104/51
[2017-11-25 16:00] VITALS: BP 104/51
[2017-11-25 19:20] VITALS: BP 104/51
[2017-11-26 04:04] VITALS: BP 131/69
[2017-11-26 04:58] LABS: HEMATOCRIT 28.4 % (37.0-47.0); MCH 32.9 pg (26.0-34.0); MCHC 33.8 g/dL (28.0-37.0); MCV 97.5 fL (80.0-100.0); RBC 2.91 mil/uL (4.20-5.00); RDW 16.2 % (10.5-14.5)
[2017-11-26 05:08] LABS: HEMOGLOBIN 9.6 gm/dL (12.0-15.0)
[2017-11-26 08:16] VITALS: BP 119/58
[2017-11-26 10:43] VITALS: BP 114/68
[2017-11-26 12:35] LABS: HEMATOCRIT 24.8 % (37.0-47.0); HEMOGLOBIN 8.6 gm/dL (12.0-15.0)
[2017-11-26 15:08] VITALS: BP 1140/60
[2017-11-26 17:54] LABS: HEMATOCRIT 23.5 % (37.0-47.0)
[2017-11-26 22:28] VITALS: BP 118/52
[2017-11-27 06:28] LABS: HEMATOCRIT 21.1 % (37.0-47.0); HEMOGLOBIN 7.2 gm/dL (12.0-15.0); MCH 32.8 pg (26.0-34.0); MCHC 34.2 g/dL (28.0-37.0); MCV 95.9 fL (80.0-100.0); RBC 2.2 mil/uL (4.20-5.00); RDW 15.6 % (10.5-14.5); WBC 7.4 thou/uL (4.0-11.0)
[2017-11-27 06:54] VITALS: BP 108/53
[2017-11-27 08:47] VITALS: BP 115/63
[2017-11-27 11:54] VITALS: BP 111/58; BP 121/59
[2017-11-27 16:13] VITALS: BP 121/59
[2017-11-27 19:11] VITALS: BP 113/53
[2017-11-27 22:23] LABS: HEMATOCRIT 25.2 % (37.0-47.0); HEMOGLOBIN 8.7 gm/dL (12.0-15.0)
[2017-11-28 03:51] VITALS: BP 124/66
[2017-11-28 06:18] LABS: ABSOLUTE NEUTROPHILS 4.7 thou/uL (1.4-8.2); BASOPHILS 0.7 % (0.0-2.0); EOSINOPHILS 3.4 % (0.0-3.0); HEMOGLOBIN 8.7 gm/dL (12.0-15.0); LYMPHOCYTES 26.6 % (24.0-44.0); MCHC 34.6 g/dL (28.0-37.0); MCV 92.5 fL (80.0-100.0); MONOCYTES 7.3 % (1.0-8.0); PLATELET COUNT 179 thou/uL (150-400); RDW 17.3 % (10.5-14.5); WBC 7.6 thou/uL (4.0-11.0)
[2017-11-28 06:31] LABS: ALBUMIN 2.5 g/dL (3.4-5.0); CALCIUM 8.3 mg/dL (8.5-10.1); POTASSIUM 3.4 mmol/L (3.5-5.1); TOTAL BILIRUBIN 0.4 mg/dL (<0.1-1.0); TOTAL PROTEIN 5.7 g/dL (6.4-8.2)
[2017-11-28 07:13] VITALS: BP 120/54
[2017-11-28 17:51] VITALS: BP 119/65
[2017-11-28 20:29] VITALS: BP 123/66
[2017-11-29 03:27] VITALS: BP 133/68
[2017-11-29 05:19] LABS: BASOPHILS 0.5 % (0.0-2.0); EOSINOPHILS 3.6 % (0.0-3.0); HEMATOCRIT 25.9 % (37.0-47.0); HEMOGLOBIN 8.9 gm/dL (12.0-15.0); LYMPHOCYTES 34.8 % (24.0-44.0); MCH 32.1 pg (26.0-34.0); MCHC 34.4 g/dL (28.0-37.0); MCV 93.4 fL (80.0-100.0); MONOCYTES 6.5 % (1.0-8.0); PLATELET COUNT 231 thou/uL (150-400); POLYS 54.6 % (36.0-66.0); RBC 2.78 mil/uL (4.20-5.00); RDW 17.3 % (10.5-14.5); WBC 7.3 thou/uL (4.0-11.0)
[2017-11-29 05:33] LABS: ALBUMIN 2.6 g/dL (3.4-5.0); CALCIUM 8.3 mg/dL (8.5-10.1); POTASSIUM 3.8 mmol/L (3.5-5.1); TOTAL BILIRUBIN 0.4 mg/dL (<0.1-1.0)
[2017-11-29 07:30] VITALS: BP 133/73
[2017-11-29 15:55] VITALS: BP 126/66
[2017-11-29 20:32] VITALS: BP 133/74
[2017-11-30 04:01] VITALS: BP 128/72
[2017-11-30 06:59] LABS: HEMATOCRIT 27.7 % (37.0-47.0); HEMOGLOBIN 9.4 gm/dL (12.0-15.0); MCH 31.7 pg (26.0-34.0); MCHC 33.8 g/dL (28.0-37.0); RBC 2.95 mil/uL (4.20-5.00); RDW 17.5 % (10.5-14.5); WBC 7.4 thou/uL (4.0-11.0)
[2017-11-30 07:05] LABS: CALCIUM 8.6 mg/dL (8.5-10.1); CREATININE 1.1 mg/dL (0.6-1.0); POTASSIUM 3.9 mmol/L (3.5-5.1)
[2017-11-30 07:20] VITALS: BP 139/69
[2017-11-30] MEDS ORDERED: TUMS PO (09:03)
[2017-11-30] MEDS ORDERED: ERGOCALCIF50000 UNIT PO (09:03)
[2017-11-30] MEDS ORDERED: HYDROCODONE-AP1 EAC6 PO (09:03)
== END 2017-11-30 15:44 | DRG 480 ==
LOC: ER 14:20 → EROBS 16:36 → 4S 16:36
PROVIDERS: Emergency Medicine; Nurse Practitioner Acute Care; Orthopaedic Surgery; Specialist
PROC: 0QH636Z Insertion of Intramedullary Internal Fixation Device into Right Upper Femur, Percutaneous Approach (ICD-10-PCS; principal; 2017-11-23)
DX: M84.351A Stress fracture, right femur, initial encounter for fracture (principal); E43 Unspecified severe protein-calorie malnutrition; I10 Essential (primary) hypertension; R62.7 Adult failure to thrive; E11.42 Type 2 diabetes mellitus with diabetic polyneuropathy; M19.90 Unspecified osteoarthritis, unspecified site; M81.0 Age-related osteoporosis without current pathological fracture; Z90.710 Acquired absence of both cervix and uterus; Z88.6 Allergy status to analgesic agent; Z88.8 Allergy status to other drugs, medicaments and biological substances; Z68.20 Body mass index [BMI] 20.0-20.9, adult; W18.39XA Other fall on same level, initial encounter; Y93.89 Activity, other specified; Y92.89 Other specified places as the place of occurrence of the external cause; Y99.8 Other external cause status; Z79.899 Other long term (current) drug therapy
CPT/HCPCS: 10195; 50010; 50101; 50386; 51412; 51538; 52304; 55445; 56524; 57092; 62110; 62900; 70005

== ENCOUNTER → 2017-12-13 | Outpatient (CLI) | payer OTHER, BC ==
[~2017-12-13] MED LIST changes: +ERGOCALCIF50000 UNIT PO; +TUMS PO
== END ==
LOC: RAD 11:12
DX: M24.60 Ankylosis, unspecified joint (principal); I10 Essential (primary) hypertension; E11.9 Type 2 diabetes mellitus without complications; Z98.890 Other specified postprocedural states